=== PATIENT | female | born 1990 | race Caucasian/White ===

== ENCOUNTER 2017-06-08 21:54 | Emergency (ER) | payer SELFPAY ==
[2017-06-08 22:08] VITALS: BP 122/47; PULSE 96; TEMP 98.2; BMI 19.1
--- NOTE | 2017-06-08 23:53 | PDOC ---
History of Present Illness - General Chief Complaint: Cold Symptoms Stated Complaint: COLD SYMPTOMS Time Seen by Provider: 06/08/17 22:58 - History of Present Illness Initial Comments: 06/08/17 23:50 CHIEF COMPLAINT: HISTORY OF PRESENT ILLNESS: 26 yo F with no PMH presents to ED with URI symptoms. Patient states she was sick "a couple weeks ago, and it got better for a little bit, and now it's back." She reports feeling runny nose, throat pain, headache, body ache, and chills since 2 days ago. She reports that she took "cipro or some leftover antibiotic my sister gave me" a couple weeks ago. Patient states she did not take her temperature at home so she doesn't know if she had a fever. Denies nausea, vomiting, diarrhea. No recent travel or sick contacts. PAST MEDICAL HISTORY: Denies past medical history FAMILY HISTORY: Denies SOCIAL HISTORY: Denies tobacco, alcohol, illicit drug use. SURGICAL HISTORY: Denies ALLERGIES: Sulfa medications REVIEW OF SYSTEMS General/Constitutional: Denies fever or chills. Denies weakness, weight change. HEENT: Denies change in vision. Denies ear pain or discharge. Denies sore throat. Cardiovascular: Denies chest pain or shortness of breath. Respiratory: Denies cough, wheezing, or hemoptysis. Gastrointestinal: Denies nausea, vomiting, diarrhea or constipation. Denies rectal bleeding. Genitourinary: Denies dysuria, frequency, or change in urination. Musculoskeletal: Denies joint or muscle swelling or pain. Denies neck or back pain. Skin and breasts: Denies rash or easy bruising. Neurologic: Denies headache, vertigo, loss of consciousness, or loss of sensation. Psychiatric: Denies depression or anxiety. Endocrine: Denies increased thirst. Denies abnormal weight change. Hematologic/Lymphatic: Denies anemia, easy bleeding, or history of blood clots. Allergic/Immunologic: Denies hives or skin allergy. Denies latex allergy. PHYSICAL EXAM General Appearance: Well-appearing, appropriately dressed. No apparent distress , no intoxication. HEENT: EOMI, PERRLA, normal ENT inspection, normal voice, TMs normal, pharynx normal. No conjunctival pallor. No photophobia, scleral icterus. Neck: Supple. Trachea midline. No tenderness, rigidity, carotid bruit, stridor , lymphadenopathy, or thyromegaly. Respiratory/Chest: Lungs CTAB. No shortness of breath, chest tenderness, respiratory distress, accessory muscle use. No crackles, rales, rhonchi, stridor , wheezing, dullness Cardiovascular: RRR. S1, S2. No JVD, murmur, bradycardia, tachycardia. Gastrointestinal/Abdominal: Normal bowel sounds. Abdomen soft, non-distended. No tenderness or rebound tenderness. No organomegaly, pulsatile mass, guarding , hernia, hepatomegaly, splenomegaly. Musculoskeletal/Extremities: Normal inspection. FROM of all extremities, normal capillary refill. Pelvis Stable. No CVA tenderness. No tenderness to extremities, pedal edema, swelling, erythema or deformity. Integumentary: Appropriate color, dry, warm. No cyanosis, erythema, jaundice or rash Neurologic: plowing gardens II-XII intact. Fully oriented, alert. Appropriate mood/affect. Motor strength 5/5. No appreciable EOM palsy, facial droop or sensory deficit. Past History - Past Medical History Allergies/Adverse Reactions: Allergies Allergy/AdvReac Type Severity Reaction Status Date / Time Sulfa (Sulfonamide Allergy Severe Verified 06/08/17 22:08 Antibiotics) Home Medications: Ambulatory Orders Azithromycin [Zithromax 250mg Tablets -] 250 mg PO ASDIR #6 tablet 06/09/17 Dextromethorphan HBr [Robitussin] 15 mg PO QID PRN #28 capsule 06/09/17 Pseudoephedrine HCl [Sudafed 12-Hour] 120 mg PO BID PRN #1 tablet.er 06/09/17 - Suicide/Smoking/Psychosocial Hx Smoking History: Unknown if ever smoked Have you smoked in the past 12 months: No Information on smoking cessation initiated: No Hx Alcohol Use: No Drug/Substance Use Hx: No *Physical Exam - Vital Signs Last Vital Signs Temp Pulse Resp BP Pulse Ox 98.2 F 96 H 16 122/47 96 06/08/17 22:06 06/08/17 22:06 06/08/17 22:06 06/08/17 22:06 06/08/17 22:06 *DC/Admit/Observation/Transfer Diagnosis at time of Disposition: Upper respiratory infection Qualifiers: URI type: unspecified URI Qualified Code(s): J06.9 - Acute upper respiratory infection, unspecified - Discharge Dispostion Disposition: HOME Condition at time of disposition: Stable Admit: No - Prescriptions Prescriptions: Azithromycin [Zithromax 250mg Tablets -] 250 mg PO ASDIR #6 tablet Dextromethorphan HBr [Robitussin] 15 mg PO QID PRN #28 capsule PRN Reason: Cough Pseudoephedrine HCl [Sudafed 12-Hour] 120 mg PO BID PRN #1 tablet.er PRN Reason: runny nose/congestion - Referrals - Patient Instructions Printed Discharge Instructions: Acute Bronchitis, DI for Viral Upper Respiratory Infection -- Adult Additional Instructions: Please take medications as prescribed and complete the ENTIRE course of antibiotics even if your symptoms have resolved. If you develop any persistent fever unrelieved by Motrin or Tylenol, vomiting, diarrhea, or any new or worsening symptoms, please return to the ER. - Post Discharge Activity Forms/Work/School Notes: Back to Work
--- NOTE | 2017-06-09 00:13 | PDOC ---
*Physical Exam - Vital Signs Last Vital Signs Temp Pulse Resp BP Pulse Ox 98.2 F 96 H 16 122/47 96 06/08/17 22:06 06/08/17 22:06 06/08/17 22:06 06/08/17 22:06 06/08/17 22:06 Medical Decision Making - Medical Decision Making 06/09/17 00:13 agree with care from [facility] *DC/Admit/Observation/Transfer Diagnosis at time of Disposition: Upper respiratory infection - Discharge Dispostion Disposition: HOME Condition at time of disposition: Stable - Prescriptions Prescriptions: Azithromycin [Zithromax 250mg Tablets -] 250 mg PO ASDIR #6 tablet Dextromethorphan HBr [Robitussin] 15 mg PO QID PRN #28 capsule PRN Reason: Cough Pseudoephedrine HCl [Sudafed 12-Hour] 120 mg PO BID PRN #1 tablet.er PRN Reason: runny nose/congestion - Referrals - Patient Instructions Printed Discharge Instructions: Acute Bronchitis, DI for Viral Upper Respiratory Infection -- Adult Additional Instructions: Please take medications as prescribed and complete the ENTIRE course of antibiotics even if your symptoms have resolved. If you develop any persistent fever unrelieved by Motrin or Tylenol, vomiting, diarrhea, or any new or worsening symptoms, please return to the ER. - Post Discharge Activity Forms/Work/School Notes: Back to Work
== END 2017-06-09 00:53 | disposition home or self-care (01) ==
LOC: JER 21:54
DX: J06.9 Acute upper respiratory infection, unspecified (principal)
CPT/HCPCS: 87804; 99281-25

== ENCOUNTER 2017-06-25 07:10 | Emergency (ER) | payer SELFPAY ==
[2017-06-25 07:16] VITALS: BP 109/84; PULSE 86; TEMP 98.6; BMI 18.6
[2017-06-25] MEDS ORDERED: ALBUTEROL SO4 2.5/IPRATROPIUM 0.5 INH SOL 3 ML VIAL.NEB. NEB ONE (07:16)
--- NOTE | 2017-06-25 08:29 | PDOC ---
History of Present Illness - General Chief Complaint: Asthma Stated Complaint: ASTHMA Time Seen by Provider: 06/25/17 08:23 - History of Present Illness Initial Comments: 06/25/17 08:29 CHIEF COMPLAINT: asthma attack HISTORY OF PRESENT ILLNESS: 26 yo F with hx of asthma presents to [facility] s/ p asthma attack earlier this morning. Patient states she recently moved to this area and "doesn't have a primary care doctor yet, and I didn't have an inhaler. It's my fault, I thought I would be ok because I've been able to manage the asthma, but with this cold and having the heat on, I guess it just started up again." She denies having any fever, chills, cough, vomiting, diarrhea, or any other infectious symptoms. Patient was given Duoneb treatment in triage and at this time she states "I feel ok now" and that all symptoms have resolved. PAST MEDICAL HISTORY: asthma FAMILY HISTORY: Denies SOCIAL HISTORY: Denies tobacco, alcohol, illicit drug use. SURGICAL HISTORY: Denies ALLERGIES: sulfa REVIEW OF SYSTEMS General/Constitutional: Denies fever or chills. HEENT: Denies change in vision. Denies ear pain or discharge. Denies sore throat. Cardiovascular: Denies chest pain or shortness of breath. Respiratory: "I had an asthma attack this morning, I'm ok now." Denies cough, wheezing, or hemoptysis. Gastrointestinal: Denies nausea, vomiting, diarrhea or constipation. Denies rectal bleeding. Genitourinary: Denies dysuria, frequency, or change in urination. Musculoskeletal: Denies joint or muscle swelling or pain. Denies neck or back pain. Skin and breasts: Denies rash or easy bruising. Neurologic: Denies headache, vertigo, loss of consciousness, or loss of sensation. PHYSICAL EXAM General Appearance: Well-appearing, appropriately dressed. No apparent distress. HEENT: EOMI, PERRLA. No conjunctival pallor. No photophobia, scleral icterus. Respiratory/Chest: Lungs CTAB. No wheezing appreciated. Cardiovascular: RRR. S1, S2. Musculoskeletal/Extremities: Normal inspection. FROM of all extremities, normal capillary refill. Pelvis Stable. No CVA tenderness. No tenderness to extremities, pedal edema, swelling, erythema or deformity. Integumentary: Appropriate color, dry, warm. No cyanosis, erythema, jaundice or rash Neurologic: rcp II-XII intact. Fully oriented, alert. Appropriate mood/affect. Motor strength 5/5. No appreciable EOM palsy, facial droop or sensory deficit. Past History - Past Medical History Allergies/Adverse Reactions: Allergies Allergy/AdvReac Type Severity Reaction Status Date / Time Sulfa (Sulfonamide Allergy Severe Verified 06/25/17 07:14 Antibiotics) Home Medications: Ambulatory Orders Albuterol Sulfate Inhaler - [Ventolin HFA Inhaler -] 1 - 2 inh PO Q4H PRN #1 inhaler 06/25/17 Anemia: No Asthma: Yes Cancer: No Cardiac Disorders: No CVA: No COPD: No DVT: No Dementia: No Diabetes: No Dialysis: No GI Disorders: No Disorders: No HTN: No Hypercholesterolemia: No Kidney Stones: No Liver Disease: No Psychiatric Problems: No Seizures: No Thyroid Disease: No Lung CA: No - Suicide/Smoking/Psychosocial Hx Smoking History: Never smoked Have you smoked in the past 12 months: No Information on smoking cessation initiated: No Hx Alcohol Use: No Drug/Substance Use Hx: No Substance Use Type: None *Physical Exam - Vital Signs Last Vital Signs Temp Pulse Resp BP Pulse Ox 98.6 F 86 18 109/84 100 06/25/17 07:14 06/25/17 07:14 06/25/17 07:14 06/25/17 07:14 06/25/17 07:14 ED Treatment Course - Medications Given in the ED: ED Medications Discontinued Medications Generic Name Dose Route Start Last Admin Trade Name Freq PRN Reason Stop Dose Admin Albuterol/Ipratropium 1 amp 06/25/17 07:16 06/25/17 07:16 Duoneb - NEB 06/25/17 07:17 1 amp NOW ONE Administration Medical Decision Making - Medical Decision Making 06/25/17 08:32 26 yo F with hx of asthma presents to [facility] s/p asthma attack earlier this morning. Duoneb given in triage, symptoms now resolved. rx for albuterol sent to pharm. referral for PCP given. Advised patient to take medication as prescribed and follow up with PCP as soon as possible. Advised patient of signs and symptoms for return to ED. Patient verbalized understanding and agrees to plan. *DC/Admit/Observation/Transfer Diagnosis at time of Disposition: Asthma attack Qualifiers: Asthma severity: mild Asthma persistence: intermittent Qualified Code(s): J45.21 - Mild intermittent asthma with (acute) exacerbation - Discharge Dispostion Disposition: HOME Condition at time of disposition: Stable Admit: No - Prescriptions Prescriptions: Albuterol Sulfate Inhaler - [Ventolin HFA Inhaler -] 1 - 2 inh PO Q4H PRN #1 inhaler PRN Reason: Asthma - Referrals Referrals: Harpal Adrian MD [Staff Physician] - - Patient Instructions Printed Discharge Instructions: Asthma -- Adult Additional Instructions: Please use medication as directed. As discussed, please follow up with a primary care doctor as soon as possible. If you develop any fever, chills, vomiting, diarrhea, shortness of breath, chest pain, or any new or worsening symptoms, please return to the ER. - Post Discharge Activity
== END 2017-06-25 08:38 | disposition home or self-care (01) ==
LOC: JERFT 07:10 → JER 07:10 → JERFT 08:38
PROC: 3E0F7GC Introduction of Other Therapeutic Substance into Respiratory Tract, Via Natural or Artificial Opening (ICD-10-PCS; principal; 2017-06-25)
DX: J45.21 Mild intermittent asthma with (acute) exacerbation (principal)
CPT/HCPCS: 99281-25

== ENCOUNTER 2017-08-09 12:04 | Emergency (ER) | payer SELFPAY ==
[2017-08-09 13:07] VITALS: BP 112/75; PULSE 106; TEMP 98.1; BMI 19.7
[2017-08-09] MEDS ORDERED: LORazepam 1 MG TABLET PO ONE (13:41)
[2017-08-09] MEDS ORDERED: LORazepam 0.5 MG TABLET ONE ×2 (13:48→13:49)
--- NOTE | 2017-08-09 14:03 | PDOC ---
History of Present Illness - General Chief Complaint: Psychiatric Stated Complaint: ANXIETY Time Seen by Provider: 08/09/17 13:40 History Source: Patient - History of Present Illness Timing/Duration: other Associated Symptoms: denies: chest pain, shortness of breath Past History - Past Medical History Allergies/Adverse Reactions: Allergies Allergy/AdvReac Type Severity Reaction Status Date / Time Sulfa (Sulfonamide Allergy Severe Verified 06/25/17 07:14 Antibiotics) Home Medications: Ambulatory Orders Albuterol Sulfate Inhaler - [Ventolin HFA Inhaler -] 1 - 2 inh PO Q4H PRN #1 inhaler 06/25/17 Alprazolam [Xanax] 0.25 mg PO ASDIR #20 tablet MDD 6 tabs 08/09/17 Anemia: No Asthma: Yes Cancer: No Cardiac Disorders: No CVA: No COPD: No DVT: No Dementia: No Diabetes: No Dialysis: No GI Disorders: No Disorders: No HTN: No Hypercholesterolemia: No Kidney Stones: No Liver Disease: No Psychiatric Problems: No Seizures: No Thyroid Disease: No Lung CA: No - Suicide/Smoking/Psychosocial Hx Smoking History: Never smoked Have you smoked in the past 12 months: No Information on smoking cessation initiated: No Hx Alcohol Use: No Drug/Substance Use Hx: No Substance Use Type: None Review of Systems - Review of Systems Respiratory: No: Shortness of Breath Cardiac (ROS): No: Chest Pain, Lightheadedness, Palpitations ABD/GI: No: Nausea, Vomiting Psychiatric: Yes: Anxiety, Frequent Crying, Stressors, Sleep Pattern Change, Change in Appetite *Physical Exam - Vital Signs Last Vital Signs Temp Pulse Resp BP Pulse Ox 98.1 F 106 H 20 112/75 98 08/09/17 13:04 08/09/17 13:04 08/09/17 13:04 08/09/17 13:04 08/09/17 13:04 - Physical Exam Comments: 08/09/17 14:02 Crying in ED General Appearance: Yes: Appropriately Dressed, Moderate Distress HEENT: positive: Normal Voice Respiratory/Chest: positive: Lungs Clear, Normal Breath Sounds. negative: Respiratory Distress Cardiovascular: positive: S1, S2, Tachycardia Integumentary: positive: Dry, Warm Neurologic: positive: Fully Oriented, Alert, Other (anxious) ED Treatment Course - Medications Given in the ED: ED Medications Discontinued Medications Generic Name Dose Route Start Last Admin Trade Name Vin PRN Reason Stop Dose Admin Lorazepam 1 mg 08/09/17 13:41 08/09/17 13:52 Ativan - PO 08/09/17 13:42 1 mg ONCE ONE Administration Medical Decision Making - Medical Decision Making 08/09/17 13:58 27-year-old female, endorses history of anxiety and panic attacks here with anxiety with frequent crying, decreased appetite and insomnia. Patient reports multiple life stressors including recent breakup with boyfriend who she states left her alone with bills that she cannot afford. States she has no family close by and is struggling in school. Does not currently have a PMD, therapist or psychiatrist as she currently does not have insurance. Patient states in the past she was seen by a therapist and has had benzos prescribed for her short -term. Not currently on meds at home. States her insurance will be reactivated in the next month. Patient denies any SI or HI at this time See exam Anxiety Multiple life stressors Not currently on meds and uninsured No SI/HI Teary and appears anxious in ER -dose of ativan and reassess 08/09/17 14:41 Pt feeling better and requesting discharge. Rpt HR 86. Discharge in stable condition with prescription for short course of xanax. Primary care and psych referral given *DC/Admit/Observation/Transfer Diagnosis at time of Disposition: Anxiety reaction - Discharge Dispostion Disposition: HOME Condition at time of disposition: Improved - Prescriptions Prescriptions: Alprazolam [Xanax] 0.25 mg PO ASDIR #20 tablet MDD 6 tabs - Referrals Referrals: Mich Villafana MD [Staff Physician] - - Patient Instructions Printed Discharge Instructions: Generalized Anxiety Disorder, Anxiety Disorders Additional Instructions: Please take medication as prescribed. It is important that you follow-up with a primary care physician or psychiatrist who can better manage your anxiety and panic attacks. Benzodiazepines like Ativan, Xanax and Klonopin are only for short-term relief of anxiety and panic attacks. There are other medication best suited for long- term management such as SSRIs like Celexa, Lexapro, Prozac, Paxil, etc. These pills can takes up to several weeks to get to full effect, but once they sick in , they are very effective. In addition to medical management, it is also a good idea to follow up with a therapist who can explore cognitive behavioral training such as mindfulness and exposure therapy You can call the number on the back of your insurance card to get a list of providers that except your insurance. You can also follow-up at [facility] at [phone] located at [address] [place] [address] on [facility]. You can also for your primary care needs at [facility] that is included in your discharge papers If symptoms worsen, return to the ED immediately - Post Discharge Activity
== END 2017-08-09 14:48 | disposition home or self-care (01) ==
LOC: JER 12:04
DX: F41.9 Anxiety disorder, unspecified (principal)
CPT/HCPCS: 99283-25

== ENCOUNTER 2018-06-20 02:22 | Emergency (ER) | payer OTHER ==
[2018-06-20] MEDS ORDERED: predniSONE 20 MG TABLET (UD) PO ONE (02:46)
--- NOTE | 2018-06-20 02:47 | PDOC ---
History of Present Illness - General Chief Complaint: Asthma Stated Complaint: ASTHMA,WHEEZING,DIFFICULTY BREATHING Time Seen by Provider: 06/20/18 02:42 History Source: Patient Exam Limitations: No Limitations - History of Present Illness Initial Comments: 06/20/18 02:47 HISTORY OF PRESENT ILLNESS: 27-year-old old has medical history of asthma presents emergency department for evaluation of shortness of breath over the past 2 days. Patient reports she was recently diagnosed with bronchitis and was given a course of antibiotics for which she is on the last day. Patient became increasingly short of breath and had audible wheezing which prompted her visit to the emergency department. Patient reports she has never been intubated for her asthma nor she ever been hospitalized. Patient states her MDI ran out a couple months ago and has not needed to have it refilled since that time. Patient also endorses recent cessation of smoking. No recent travel or sick contacts. PAST MEDICAL HISTORY: Anxiety, asthma SURGICAL HISTORY: Denies ALLERGIES: Sulfa REVIEW OF SYSTEMS General/Constitutional: Denies fever or chills. Denies weakness, weight change. HEENT: Denies change in vision. Denies ear pain or discharge. Denies sore throat. Cardiovascular: Denies chest pain or shortness of breath. Respiratory: Dry cough with audible wheezing. Denies hemoptysis. Gastrointestinal: Denies nausea, vomiting, diarrhea or constipation. Denies rectal bleeding. Genitourinary: Denies dysuria, frequency, or change in urination. Musculoskeletal: Denies joint or muscle swelling or pain. Denies neck or back pain. Skin and breasts: Denies rash or easy bruising. Neurologic: Denies headache, vertigo, loss of consciousness, or loss of sensation. Psychiatric: Denies depression or anxiety. Endocrine: Denies increased thirst. Denies abnormal weight change. Hematologic/Lymphatic: Denies anemia, easy bleeding, or history of blood clots. Allergic/Immunologic: Denies hives or skin allergy. Denies latex allergy. PHYSICAL EXAM General Appearance: Well-appearing, appropriately dressed. No apparent distress , no intoxication. Respiratory/Chest: Lungs CTAB. No shortness of breath, chest tenderness, respiratory distress, accessory muscle use. No crackles, rales, rhonchi, stridor , dullness. Expiratory audible wheezes. Speaking full sentences. Cardiovascular: RRR. S1, S2. No JVD, murmur, bradycardia, tachycardia. Integumentary: Appropriate color, dry, warm. No cyanosis, erythema, jaundice or rash Past History - Past Medical History Allergies/Adverse Reactions: Allergies Allergy/AdvReac Type Severity Reaction Status Date / Time Sulfa (Sulfonamide Allergy Severe Verified 06/20/18 02:49 Antibiotics) Home Medications: Ambulatory Orders Alprazolam [Xanax] 0.25 mg PO ASDIR #20 tablet MDD 6 tabs 08/09/17 Albuterol Sulfate Inhaler - [Ventolin HFA Inhaler -] 1 - 2 inh PO Q4H PRN #1 inhaler 06/20/18 Prednisone [Prednisone 50 MG TABLETS] 50 mg PO DAILY #4 tablet 06/20/18 Anemia: No Asthma: Yes Cancer: No Cardiac Disorders: No CVA: No COPD: No DVT: No Dementia: No Diabetes: No Dialysis: No GI Disorders: No Disorders: No HTN: No Hypercholesterolemia: No Kidney Stones: No Liver Disease: No Psychiatric Problems: No Seizures: No Thyroid Disease: No Lung CA: No - Immunization History Immunization Up to Date: No - Suicide/Smoking/Psychosocial Hx Smoking History: Never smoked Have you smoked in the past 12 months: No Hx Alcohol Use: No Drug/Substance Use Hx: No Substance Use Type: None Medical Decision Making - Medical Decision Making 06/20/18 02:51 A/P: 27-year-old female with shortness of breath and normal wheezing Audible expiratory wheezes noted Speaking full sentences No accessory muscle use noted RRR. No murmur, rub or gallop noted No edema present. Skin is appropriate color warm and dry. DuoNeb's, prednisone 60 mg orally, reassess 06/20/18 03:20 Repeat lung exam reveals clear lungs. Patient is requesting discharge. I'll discharge the patient home with a prescription for prednisone for the next 4 days and albuterol MDI. Patient is agreeable with plan and was satisfied with her care. *DC/Admit/Observation/Transfer Diagnosis at time of Disposition: Asthma attack Qualifiers: Asthma severity: mild Asthma persistence: intermittent Qualified Code(s): J45.21 - Mild intermittent asthma with (acute) exacerbation - Discharge Dispostion Disposition: HOME Condition at time of disposition: Stable Decision to Admit order: No - Prescriptions Prescriptions: Albuterol Sulfate Inhaler - [Ventolin HFA Inhaler -] 1 - 2 inh PO Q4H PRN #1 inhaler PRN Reason: Asthma Prednisone [Prednisone 50 MG TABLETS] 50 mg PO DAILY #4 tablet - Referrals - Patient Instructions Printed Discharge Instructions: Asthma -- Adult Additional Instructions: Rest, drink lots of fluids: Teas, water, soups, Pedialyte Saltwater gargles Steamy showers/seem to face break up mucus Avoid contact with others until fevers and cough resolved Lots of handwashing and good hygiene Continue [id number] medications for symptomatic relief Tylenol or Motrin for fever and pain Albuterol pump as needed for wheezing Prednisone as directed until completed Followup with private physician in one to 2 days Return to emergency department for worsened symptoms, fevers, dehydration, use of pump more than 5 times daily - Post Discharge Activity Forms/Work/School Notes: Back to Work
[2018-06-20 02:56] VITALS: BP 101/74; PULSE 89; TEMP 97.8; BMI 18.8
[2018-06-20] MEDS: ALBUTEROL SO4 2.5/IPRATROPIUM 0.5 INH SOL 3 ML VIAL.NEB. NEB SCH ×2 (02:57→03:33)
[2018-06-20] MEDS ORDERED: predniSONE 20 MG TABLET (UD) ONE (03:26)
== END 2018-06-20 03:44 | disposition home or self-care (01) ==
LOC: JER 02:22
PROC: 3E0F7GC Introduction of Other Therapeutic Substance into Respiratory Tract, Via Natural or Artificial Opening (ICD-10-PCS; principal; 2018-06-20)
DX: J45.21 Mild intermittent asthma with (acute) exacerbation (principal)
CPT/HCPCS: 94640; 99281-25

== ENCOUNTER 2021-05-18 05:13 | Emergency (ER) | payer OTHER ==
[2021-05-18 05:23] VITALS: BP 107/77; TEMP 98.7; BMI 21.4
[2021-05-18 06:35] VITALS: PULSE 99
== END 2021-05-18 06:53 | disposition home or self-care (01) ==
LOC: JER 05:13
DX: J45.909 Unspecified asthma, uncomplicated (principal)
CPT/HCPCS: 99283-25